=== PATIENT | male | born 1950 ===

== ENCOUNTER 2024-10-08 18:01 | Inpatient (IN) | payer BC, MEDICARE ==
[~2024-10-08 18:01] MED LIST: Iopamidol-370 76% 500 ML MDV (1 ML CHARGE) ONE
[2024-10-08] MEDS ORDERED: Pantoprazole 40 MG VIAL ONE (18:39)
[2024-10-08] MEDS ORDERED: Pantoprazole 80 MG, Admixture Fee 1 EACH in Sodium Chloride 0.9% 100 ML IVPB SCH (18:45)
[2024-10-08 19:02] LABS: #Basophils Less than 0.03 10x3/uL (0.0-0.2); #Eosinophils Less than 0.03 10x3/uL (0.0-0.7); %Basophils 0.1 % (0.0-1.0); %Lymphocytes 7.9 % (21.0-51.0); %Monocytes 3.7 % (0.0-10.0); Hematocrit 16.3 % (42.0-52.0); Hemoglobin 5.7 g/dL (14.0-18.0); Mean Corpuscular Hemoglobin 31.8 pg (27.0-31.0); Mean Corpuscular Volume 91.1 fL (78.0-98.0); Mean Platelet Volume 11.5 fL (7.4-10.4); Platelet Count 260 10x3/uL (130-400); RBC Distribution Width 13.2 % (11.5-14.5); Red Blood Cell (RBC) Count 1.79 mill/uL (4.70-6.10)
[2024-10-08 19:11] LABS: Prothrombin Time 13.2 sec (12.0-14.7)
[2024-10-08 19:17] LABS: ALT (SGPT) 10 U/L (8-55); AST (SGOT) 19 U/L (5-34); Albumin 3.4 g/dL (3.4-4.8); Alkaline Phosphatase 67 U/L (40-110); Anion Gap 19 mmol/L (10-20); BUN (Urea Nitrogen) 58 mg/dL (8.4-25.7); Bilirubin, Total 0.3 mg/dL (0.2-1.2); Calc. Creatinine Clearance 0 mL/min (70-130); Calcium 8.6 mg/dL (7.8-10.44); Carbon Dioxide 19 mmol/L (23-31); Chloride 107 mmol/L (98-107); Estimated GFR 93; Globulin 2.3 g/dL (2.4-3.5); Glucose 135 mg/dL (83-110); Potassium 4.2 mmol/L (3.5-5.1); Protein, Total 5.7 g/dL (5.8-8.1); Sodium 141 mmol/L (136-145)
[2024-10-08 19:22] LABS: Troponin I Less than 0.010 ng/mL (< 0.028)
[2024-10-08] MEDS ORDERED: Acetaminophen 325 MG TAB PO PRN (19:41)
[2024-10-08] MEDS ORDERED: Ondansetron PF 4 MG/2 ML Vial IVP PRN (19:41)
[2024-10-08] MEDS ORDERED: Calcium Carbonate 500 MG ChewTAB PO PRN (19:41)
[2024-10-08] MEDS ORDERED: Senokot S 8.6-50 MG TAB PO PRN (19:41)
[2024-10-08] MEDS: Sodium Chloride 0.9% 1,000 ML IV SCH (20:00)
[2024-10-08] MEDS ORDERED: Sodium Chloride 0.9% 100 ML ONE (20:20)
[2024-10-08] MEDS ORDERED: Piperacillin/Tazobactam 4.5 GM VIAL ONE (20:20)
[2024-10-08 21:05] LABS: Iron 112 ug/dL (65-175); Iron Binding Capacity, Total 208 mcg/dL (261-462)
[2024-10-08] MEDS: Lactated Ringer's 1,000 ML IV SCH (21:59)
[2024-10-08 22:46] LABS: Lactic Acid 5.14 mmol/L (0.5-2.2)
[2024-10-08 23:17] VITALS: BMI 24.4
[2024-10-08 23:57] LABS: Hemoglobin 4.5 g/dL (14.0-18.0)
[2024-10-09] MEDS: Pantoprazole 80 MG, Admixture Fee 1 EACH in Sodium Chloride 0.9% 100 ML IVPB SCH (04:37)
[2024-10-09 06:04] LABS: #Basophils 0.03 10x3/uL (0.0-0.2); %Basophils 0.2 % (0.0-1.0); %Eosinophils 0.2 % (0.0-10.0); %Monocytes 6.9 % (0.0-10.0); Hemoglobin 6.5 g/dL (14.0-18.0); Mean Corpuscular HGB CONC 34.2 g/dL (32.0-36.0); Mean Corpuscular Hemoglobin 31.1 pg (27.0-31.0); Mean Corpuscular Volume 90.9 fL (78.0-98.0); Mean Platelet Volume 10.8 fL (7.4-10.4); Platelet Count 189 10x3/uL (130-400); RBC Distribution Width 13.8 % (11.5-14.5); Red Blood Cell (RBC) Count 2.09 mill/uL (4.70-6.10)
[2024-10-09 06:18] LABS: Lactic Acid 1.87 mmol/L (0.5-2.2)
[2024-10-09 07:32] LABS: ALT (SGPT) 7 U/L (8-55); AST (SGOT) 17 U/L (5-34); Albumin 2.7 g/dL (3.4-4.8); Alkaline Phosphatase 51 U/L (40-110); Anion Gap 12 mmol/L (10-20); BUN (Urea Nitrogen) 36 mg/dL (8.4-25.7); Bilirubin, Total 0.6 mg/dL (0.2-1.2); Calc. Creatinine Clearance 106 mL/min (70-130); Carbon Dioxide 23 mmol/L (23-31); Cardiac Risk 6.6 (Less than 4.5); Chloride 109 mmol/L (98-107); Cholesterol 106 mg/dl (< 200 Desired); Estimated GFR 97; Globulin 1.7 g/dL (2.4-3.5); Glucose 102 mg/dL (83-110); HDL Cholesterol 16 mg/dL (>60 Neg Risk); LDL Cholesterol, Calculated 55 mg/dL; Potassium 3.7 mmol/L (3.5-5.1); Protein, Total 4.4 g/dL (5.8-8.1); Sodium 140 mmol/L (136-145); Triglycerides 177 mg/dL (Less than 150)
[2024-10-09] MEDS: Albumin 25% 25 GM (100 mL) BOT IVPB SCH (09:01)
[2024-10-09] MEDS ORDERED: Midazolam HCl 2 mg/2 ml Vial ONE (10:45)
[2024-10-09] MEDS ORDERED: Ketamine In 0.9 % NaCl 50 MG/5 ML SYRINGE ONE (10:45)
[2024-10-09] MEDS ORDERED: PROPOFOL 20 ML ONE (10:45)
[2024-10-09] MEDS ORDERED: ePHEDrine Sulfate 50 MG/10 ML VIAL ONE (11:02)
[2024-10-09 13:09] VITALS: BMI 24.4
[2024-10-09 17:23] LABS: Hematocrit 19.9 % (42.0-52.0); Hemoglobin 6.9 g/dL (14.0-18.0)
[2024-10-09] MEDS: GoLYTELY 4,000 ml Bottle PO SCH (18:30)
[2024-10-09] MEDS: Pantoprazole 40 MG VIAL IVP SCH (20:24)
[2024-10-10 05:28] LABS: #Basophils 0.09 10x3/uL (0.0-0.2); %Basophils 0.7 % (0.0-1.0); %Eosinophils 1.6 % (0.0-10.0); %Lymphocytes 23.8 % (21.0-51.0); %Neutrophils 64.2 % (42.0-75.0); Hematocrit 23.3 % (42.0-52.0); Hemoglobin 8.2 g/dL (14.0-18.0); Mean Corpuscular HGB CONC 35.2 g/dL (32.0-36.0); Mean Corpuscular Hemoglobin 31.5 pg (27.0-31.0); Mean Corpuscular Volume 89.6 fL (78.0-98.0); Platelet Count 196 10x3/uL (130-400); RBC Distribution Width 15.2 % (11.5-14.5)
[2024-10-10 05:44] LABS: Anion Gap 10 mmol/L (10-20); BUN (Urea Nitrogen) 16 mg/dL (8.4-25.7); Calc. Creatinine Clearance 121 mL/min (70-130); Calcium 8.1 mg/dL (7.8-10.44); Carbon Dioxide 27 mmol/L (23-31); Chloride 110 mmol/L (98-107); Estimated GFR 102; Glucose 92 mg/dL (83-110); Magnesium 1.8 mg/dL (1.6-2.6); Potassium 3.9 mmol/L (3.5-5.1); Sodium 143 mmol/L (136-145)
[2024-10-10] MEDS ORDERED: PHENYLEPHRINE-NS 100 MCG/ML 10 ML SYRINGE ONE (08:05)
[2024-10-10] MEDS ORDERED: PROPOFOL 0 ML ONE (08:05)
[2024-10-10] MEDS ORDERED: Lidocaine 1% PF 5 ML VIAL ONE (08:07)
[2024-10-10] MEDS ORDERED: ePHEDrine Sulfate 50 MG/10 ML VIAL ONE (08:16)
[2024-10-10] MEDS ORDERED: Glycopyrrolate 0.2 MG/ML 5 ML SYRINGE ONE (08:20)
[2024-10-10] MEDS ORDERED: PROPOFOL 20 ML ONE ×2 (08:34→08:53)
[2024-10-10] MEDS ORDERED: Heparin 1,000 UNITS/ML VIAL ONE (13:25)
[2024-10-10] MEDS: Magnesium 2 GM/50 ML(in water) 2 GM in Premix 1 BAG IVPB SCH ×2 (16:55→16:56)
[2024-10-10] MEDS: Potassium Bicarbonate/Cit Ac 20 MEQ TAB PO SCH (16:57)
[2024-10-10] MEDS: Multivit, Therapeutic 1 TAB PO SCH (21:52)
[2024-10-10] MEDS: Folic Acid 1 MG TAB PO SCH (21:52)
[2024-10-10] MEDS: Cyanocobalamin (Vitamin B-12) 1,000 MCG TAB PO SCH (21:53)
[2024-10-11 05:45] LABS: #Basophils 0.08 10x3/uL (0.0-0.2); %Basophils 0.8 % (0.0-1.0); %Eosinophils 3.3 % (0.0-10.0); %Lymphocytes 23.3 % (21.0-51.0); %Monocytes 7.2 % (0.0-10.0); %Neutrophils 64.1 % (42.0-75.0); Hematocrit 22.5 % (42.0-52.0); Hemoglobin 7.8 g/dL (14.0-18.0); Mean Corpuscular HGB CONC 34.7 g/dL (32.0-36.0); Mean Corpuscular Hemoglobin 32.1 pg (27.0-31.0); Mean Corpuscular Volume 92.6 fL (78.0-98.0); Mean Platelet Volume 10.7 fL (7.4-10.4); Platelet Count 200 10x3/uL (130-400); RBC Distribution Width 15.5 % (11.5-14.5); Red Blood Cell (RBC) Count 2.43 mill/uL (4.70-6.10)
[2024-10-11 05:59] LABS: Anion Gap 10 mmol/L (10-20); BUN (Urea Nitrogen) 11 mg/dL (8.4-25.7); Calc. Creatinine Clearance 123 mL/min (70-130); Calcium 7.8 mg/dL (7.8-10.44); Carbon Dioxide 26 mmol/L (23-31); Chloride 107 mmol/L (98-107); Estimated GFR 102; Glucose 88 mg/dL (83-110); Potassium 3.6 mmol/L (3.5-5.1); Sodium 139 mmol/L (136-145)
[2024-10-11 12:36] VITALS: BP 103/65; TEMP 97.7
== END 2024-10-11 14:28 | disposition home or self-care (01) | DRG 378 ==
LOC: SUATTDRO 18:01 → ERS 18:01 → SURG A 19:40
PROVIDERS: ADMIT Internal Medicine; ATTEND Internal Medicine
PROC: 0DJ08ZZ Inspection of Upper Intestinal Tract, Via Natural or Artificial Opening Endoscopic (ICD-10-PCS; principal; 2024-10-09)
PROC: 0DJD8ZZ Inspection of Lower Intestinal Tract, Via Natural or Artificial Opening Endoscopic (ICD-10-PCS; 2024-10-09)
PROC: 30233N1 Transfusion of Nonautologous Red Blood Cells into Peripheral Vein, Percutaneous Approach (ICD-10-PCS; 2024-10-09)
DX: K92.2 Gastrointestinal hemorrhage, unspecified (principal); D62 Acute posthemorrhagic anemia; E87.20 Acidosis, unspecified; K59.00 Constipation, unspecified; D72.829 Elevated white blood cell count, unspecified; E78.5 Hyperlipidemia, unspecified; K64.8 Other hemorrhoids; K64.4 Residual hemorrhoidal skin tags; Z79.899 Other long term (current) drug therapy
CPT/HCPCS: 36415; 36430; 71045; 74177; 78278; 80048; 80053; 80061; 82274; 82728; 83036; 83540; 83550; 83605; 83735; 83880; 84484; 85025; 85046; 85610; 86141; 86850; 86900; 86901; 87040; 93005; 94760; A9560; J1644; J2250; J2470; J2543; J2704; J3475; J3490; J7030; J7120; P9016; P9047; Q9967